=== PATIENT | female | born 1980 | race Caucasian/White ===

== ENCOUNTER 2020-02-04 18:02 | Emergency (ER) | payer MEDICAID, SELFPAY ==
[2020-02-04] VITALS (7 sets, daily range): BP systolic 133–198; BP diastolic 87–140; PULSE 86–103; RESP 12–18; TEMP 38.1; O2SAT 96–100
--- NOTE | ~2020-02-04 | XR_ITS ---
EXAMINATION: XR chest 1V portable INDICATION: Fever and chills, shortness of breath TECHNIQUE: Portable AP chest at 1833 hours COMPARISON: 01/14/2009 FINDINGS: There are minimal airspace opacities in the mid and lower lung zones. No pleural effusion o r pneumothorax is identified. The cardiomediastinal silhouette is normal. IMPRESSION: 1. Airspace opacities of the mid and lower lung zones, consistent with atelectasis versus pneumonia. Reviewed, dictated and finalized at location A. IMPRESSION: 1. Airspace opacities of the mid and lower lung zones, consistent with atelecta sis versus pneumonia.
[2020-02-04 18:32] LABS: Basophils Percent Auto 0.3 % (0.2-1.2); Hematocrit 43.6 % (37.0-47.0); Hemoglobin 14.4 g/dL (12.0-15.0); Immature Granulocyte Absolute 0.01 K/mm3 (0.00-0.031); Immature Granulocyte Percent A 0.3 % (0-0.5); Lymphocytes Absolute Auto 1.01 K/mm3 (0.9-3.2); Lymphocytes Percent Auto 33.3 % (18.3-44.2); Mean Corpuscular Hemoglobin 26.9 pg (26-34); Mean Corpuscular Volume 81.3 fl (80-100); Mean Platelet Volume 10.5 fl (7.4-10.4); Monocytes Absolute Auto 0.2 K/mm3 (0.1-0.6); Monocytes Percent Auto 6.3 % (2.6-8.5); Neutrophils Absolute Auto 1.8 K/mm3 (1.3-6.7); Neutrophils Percent Auto 59.8 % (45.5-73.1); Platelet Count Result 164 k/mm3 (150-375); Red Blood Count 5.36 M/mm3 (4.2-5.4); Red Cell Distribution Width 13.6 % (11.5-14.5)
[2020-02-04] MEDS: ONDANSETRON INJ 4 MG/2 ML VIAL IV PUSH (18:37)
[2020-02-04] MEDS: FAMOTIDINE 20 MG/2 ML VIAL IV PUSH (18:37)
[2020-02-04] MEDS: LACTATED RINGERS 1,000 ML 999 ML IV CONT (18:38)
--- NOTE | 2020-02-04 18:41 | ED.GENADULT ---
HPI - General Adult General Chief complaint: Unspecified <TAMMY Olivo Last Filed: 02/04/20 20:32> Stated complaint: everything is wrong <TAMMY Olivo Last Filed: 02/04/20 20:32> Time Seen by Provider: 02/04/20 18:05 <TAMMY Olivo Last Filed: 02/04/20 20:32> Source: patient <TAMMY Olivo Last Filed: 02/04/20 20:32> Mode of arrival: ambulatory <TAMMY Olivo Last Filed: 02/04/20 20:32> Limitations: no limitations <TAMMY Olivo Last Filed: 02/04/20 20:32> History of Present Illness HPI narrative: Patient is a 39-year-old female who presents to emergency department for evaluation of fever chills body aches vomiting diarrhea URI symptoms for the last 7 days patient had a family member that was ill however has been better since his evaluation is unsure as to the etiology of his symptoms was tested for COVID but does not know the results. Patient herself has not been tested for COVID presents noting that today she was having emesis has had some loose stools over the course of the illness and also notes cough and congestion fever chills and body aches. Patient has been taking [id number] medications with minimal improvement. Patient on arrival is ill-appearing. <TAMMY Olivo Last Filed: 02/04/20 20:32> Related Data Allergies/adverse reactions: Allergies Allergy/AdvReac Type Severity Reaction Status Date / Time ibuprofen Allergy Mild 600 MG Verified 02/23/19 17:50 GIVES RASH ketorolac Allergy Mild RASH Verified 02/23/19 17:50 propoxyphene Allergy Mild RASH Verified 02/23/19 17:50 codeine Allergy Swelling Verified 02/04/20 18:17 of Lip/Tongue/Throat diphenhydramine Allergy Swelling Verified 02/04/20 18:17 [From Benadryl] of Lip/Tongue/Throat morphine Allergy Difficulty Verified 02/04/20 18:17 Breathing Contrast Media Allergy Mild Unknown Uncoded 02/04/20 18:17 <TAMMY Olivo Last Filed: 02/04/20 20:32> Review of Systems Review of Systems: All systems reviewed & are unremarkable except as noted in HPI and below <Freedom Salgado PA-C - Last Filed: 02/04/20 20:32> [facility] Past Medical History Medical History: Medical History (Updated 02/05/20 @ 00:00 by Jean Paul Burciaga) Morbid obesity <Freedom Salgado PA-C - Last Filed: 02/04/20 20:32> Surgical History Surgical History: Surgical History H/O bariatric surgery <Freedom Salgado PA-C - Last Filed: 02/04/20 20:32> Social History Social History: Social History Smoking status: Never smoker <Freedom Salgado PA-C - Last Filed: 02/04/20 20:32> Exam Narrative: Exam Narrative: GENERAL: Ill-appearing, obese, and in no acute distress. HEAD: Normocephalic, atraumatic. EYES: PERRLA and EOMI. ENT: Nares clear, no rhinorrhea or epistaxis. Mucous membranes moist. Oropharynx without tonsillar hypertrophy exudate or other lesions. NECK: Supple. No adenopathy or masses. CHEST: Clear to auscultation. No respiratory distress. No wheezes rales or rhonchi HEART: Regular rate and rhythm. No murmur heard. Normal peripheral pulses. ABDOMEN: Soft, generalized tenderness, distended EXTREMITIES: Normal range of motion. No edema. SKIN: Warm, dry, no rash. NEURO: No focal deficits. Alert and oriented x3. Cranial nerves II through XII grossly intact PSYCH: Normal mood and affect. <Freedom Salgado PA-C - Last Filed: 02/04/20 20:32> Course Course Emergency Course: Patient in the room at this time aware of case findings treatment plan and diagnosis patient will be treated for COVID given her symptoms and findings patient provided with reasons to return patient hemodynamically stable no hypoxemia patient advised strictly for reasons to return patient agrees to do so symp
[2020-02-04 18:45] LABS: Prothrombin Time 12.6 Seconds (11.1-14.7)
[2020-02-04 18:46] LABS: Partial Thromboplastin Time 30.3 SECONDS (22.3-36.8)
[2020-02-04 18:47] LABS: Alanine Aminotransferase 30 U/L (4-35); Albumin Level 4.3 g/dL (3.5-5.1); Alkaline Phosphatase 98 U/L (38-126); Anion Gap 13.6 mmol/L (7-16); Aspartate Amino Transferase 38 U/L (14-36); Bilirubin,Total 0.9 mg/dL (0.2-1.3); Blood Urea Nitrogen 9 mg/dL (7-17); CRP 4.8 mg/dL (<1.0); Calcium 8.5 mg/dL (8.4-10.2); Carbon Dioxide 24 mmol/L (22-30); Chloride 103 mmol/L (98-107); Estimated CRCL calculation 184 ml/min; Estimated Glomerular Filt Rate > 60; Glucose 142 mg/dL (65-105); Lipase 82 U/L (23-300); Potassium 3.6 mmol/L (3.4-5.0); Sodium 137 mmol/L (137-145)
[2020-02-04] MEDS: METOPROLOL TARTRATE INJ 5 MG/5 ML VIAL IV PUSH (19:30)
[2020-02-04] MEDS: SODIUM CHLORIDE 0.9% IV 1,000 ML 999 ML IV CONT (19:33)
[2020-02-04 20:06] LABS: Add Urine Microscopic? YES; Appearance Urine Cloudy (Clear); Bilirubin Urine Negative (Negative); Blood Urine 3+ (Negative); Color Urine Yellow (Yellow); Glucose Urine UA 1+ mg/dL (Negative); Ketones Urine Negative (Negative); Leukocyte Esterase Ur Negative LEU/UL (Negative); Mucus Urine Few /lpf; Nitrate Urine Negative (Negative); Protein Urine 3+ mg/dL (Negative); RBC Urine >75 /hpf (0-2); Specific Grav Ur 1.024 (1.001-1.035); Urobilinogen Urine Negative mg/dL (<2.0)
--- NOTE | 2020-02-04 20:19 | PC.NURSE ---
Per EDP, conduct a road text on patient in room while monitoring 02. Pt stood up in room, but felt weak in her legs after 1 step and sat back down. Pt encouraged to try again. Pt stood up again and then sat back down. Pt then scooted down on bed. Pt 02 ranged from 96-99% during this time. EDP updated.
--- NOTE | 2020-02-04 20:23 | PC.NURSE ---
RT called to come see patient.
--- NOTE | 2020-02-04 20:43 | PC.NURSE ---
Pt dischargedd before receiving all of her fluids. A second line was started earlier to help her get fluids quicked. Pt educated on keeping her arm straight several times, but did not do so. Upon d/c I offered to let her stay until her fluids were all in and she said no I want to leave right now! Pt was also upset that we were not sending her home with the medications that the doctor prescribed. I explained to her this is not a practice we can do. She was concerned about affording the medications. I got her a prescription coupon. I educated her on the importance of taking her BP medications and getting them filled.
[2020-02-05 05:53] LABS: SARS-CoV-2 RNA PCR Positive
== END 2020-02-04 20:46 | disposition home or self-care (01) ==
PROVIDERS: Emergency Medicine Emergency Medical Services; Emergency Provider Emergency Medicine
DX: U07.1 COVID-19 (principal); J12.89 Other viral pneumonia
CPT/HCPCS: 36415; 71045; 80053; 81001; 83605; 83690; 85025; 85610; 85730; 86140; 87040; 87635; 96361; 96365; 96375; 99284; C9803; J0131; J1100; J2405; J7030; J7120; U0003

== ENCOUNTER 2020-03-29 18:08 | Emergency (ER) | payer MEDICAID, SELFPAY ==
--- NOTE | 2020-03-29 18:14 | ED.GENADULT ---
HPI - General Adult General Chief complaint: Skin/Abscess/Foreign Body Stated complaint: Rash Time Seen by Provider: 03/29/20 18:36 Source: patient Mode of arrival: ambulatory Limitations: no limitations History of Present Illness HPI narrative: 39-year-old female patient presents to the [facility] with complaints of a rash that she noticed last night. Patient states that the rash is gotten increasingly worse today and complains of itchiness. Patient states she did spend the night in a hotel room on Sunday night. Patient states the rash is mostly on her buttocks, going down the posterior legs, and bilateral upper arms. Patient denies doing anything for the rash so far. Denies any fevers, body aches or chills. Related Data Allergies Allergy/AdvReac Type Severity Reaction Status Date / Time ibuprofen Allergy Mild 600 MG Verified 03/29/20 18:38 GIVES RASH ketorolac Allergy Mild RASH Verified 03/29/20 18:38 propoxyphene Allergy Mild RASH Verified 03/29/20 18:38 codeine Allergy Swelling Verified 03/29/20 18:38 of Lip/Tongue/Throat diphenhydramine Allergy Swelling Verified 03/29/20 18:38 [From Benadryl] of Lip/Tongue/Throat morphine Allergy Difficulty Verified 03/29/20 18:38 Breathing Contrast Media Allergy Mild Unknown Uncoded 03/29/20 18:38 Review of Systems Review of Systems: Narrative: CONSTITUTIONAL: Denies fever, chills, or sweats. EYES: Denies visual changes, redness, or discharge. ENT: Denies rhinorrhea, congestion, sore throat, or otalgia. CARDIOVASCULAR: Denies chest pain, palpitations, or edema. RESPIRATORY: Denies cough or dyspnea. GASTROINTESTINAL: Denies abdominal pain, nausea, vomiting, or diarrhea. GENITOURINARY: Denies dysuria or hematuria. SKIN: Positive rash with itching to buttocks, bilateral lower extremities and bilateral upper extremities since last night. MUSCULOSKELETAL: Denies back pain, joint pain, or myalgia. NEUROLOGIC: Denies headache, numbness, or weakness. PSYCHIATRIC: Denies anxiety or depression. [facility] Past Medical History Medical History (Updated 03/29/20 @ 18:44 by SANFORD Aragon) Anxiety Asthma Depression Diabetes Hypertension Migraines Morbid obesity Surgical History Surgical History (Updated 09/14/20 @ 18:16 by SANFORD Aragon) H/O bariatric surgery History of appendectomy Social History Social History Smoking status: Never smoker Gender identity (if verbalized by the patient): Female Comments At the time of my signature I agree with nursing past medical history, surgical, social, and family history. There is no relevant family history pertinent to the presenting complaint. Exam Narrative: Exam Narrative: GENERAL: Well-appearing, well-nourished, and in no acute distress. HEAD: Normocephalic, atraumatic. EYES: PERRLA and EOMI. ENT: Nares clear, no rhinorrhea or epistaxis. Mucous membranes moist. NECK: Supple. No lymphadenopathy CHEST: Clear to auscultation. No respiratory distress. HEART: Regular rate and rhythm. No murmur heard. Normal peripheral pulses. ABDOMEN: Soft, nontender, nondistended, normal active bowel sounds. EXTREMITIES: Normal range of motion. No edema. SKIN: Warm, dry, patient has small macular rash noted to the buttocks that appears to be small red dots all over the buttocks and and going into the posterior legs and to the upper buttocks and low back area. There is no open wounds or discharge noted to any other areas. There is a similar rash noted to the posterior upper extremities around the shoulders. NEURO: No focal deficits. Alert and oriented x3. Course Vital Signs Vital signs: Vital Signs Temperature 36.8 C 03/29/20 18:23 Pulse Rate 93 03/29/20 18:23 Respiratory Rate 16 03/29/20 18:23 Blood Pressure 168/120 H 03/29/20 18:23 Pulse Oximetry 98 03/29/20 18:23 Temperature 36.8 C 03/29/20 18:23 Pulse Rate 93 03/29/20 1
[2020-03-29 18:23] VITALS: BP 168/120; PULSE 93; RESP 16; TEMP 36.8; O2SAT 98
== END 2020-03-29 18:47 | disposition home or self-care (01) ==
PROVIDERS: Emergency Provider Nurse Practitioner Family
DX: R21 Rash and other nonspecific skin eruption (principal); S30.860A Insect bite (nonvenomous) of lower back and pelvis, initial encounter; S40.862A Insect bite (nonvenomous) of left upper arm, initial encounter; S40.861A Insect bite (nonvenomous) of right upper arm, initial encounter; W57.XXXA Bitten or stung by nonvenomous insect and other nonvenomous arthropods, initial encounter; J45.909 Unspecified asthma, uncomplicated; E11.9 Type 2 diabetes mellitus without complications; I10 Essential (primary) hypertension; E66.01 Morbid (severe) obesity due to excess calories; Z68.44 Body mass index [BMI] 60.0-69.9, adult
CPT/HCPCS: 99213; G0463

== ENCOUNTER 2021-01-20 16:07 | Emergency (ER) | payer OTHER, SELFPAY ==
--- NOTE | ~2021-01-20 | XR_ITS ---
EXAMINATION: XR foot LT min 3V DATE: 01/20/2021 16:33 INDICATION: Left foot pain. TECHNIQUE: 3 views of left foot were obtained. COMPARISON: Left ankle radiographs 09/05/2008 FINDINGS: Bone alignment is normal. No fracture. There is mild midfoot osteoarthritis. There is an en thesophyte at posterior aspect of calcaneal tuberosity. Calcifications overlie the lower leg soft tis sues. IMPRESSION: 1. Mild midfoot osteoarthritis. Reviewed, dictated and finalized at location A.
[2021-01-20 16:18] VITALS: PULSE 87; RESP 20; TEMP 36.4; O2SAT 96
--- NOTE | 2021-01-20 16:28 | ED.GENADULT ---
HPI - General Adult General Chief complaint: Extremity Injury, Lower Stated complaint: painful left foot Time Seen by Provider: 01/20/21 16:28 Source: patient and RN notes reviewed Mode of arrival: ambulatory Limitations: no limitations History of Present Illness HPI narrative: 40-year-old female presents with a wound to the left foot with erythema, tenderness, and drainage for 1 week. ?Monica reports stepping on glass approximately 1 week ago, awakened this morning approximately 03:00AM in extreme pain to LT foot, took a pair of tweezers to foot due to feeling a piece of glass, now has increased pain and redness. ?No streaking. ?Denies fever or chills. ?Tetanus not up-to-date, will update today. ?Denies nausea, vomiting, and abdominal pain. ? Tolerating po intake well. ?LMP 3 weeks. ?Remains active. ?The patient reports she was diagnosed with COVID-19 in September 2019. ?The patient reports she is not waiting for the results of a COVID-19 lab test. ?The patient reports she does not have weakness or fatigue. ?The patient reports she does not have a new or worsening cough or shortness of breath. ?Denies chest pain. ?The patient reports she does not have any rhinorrhea, congestion, sore throat, loss of taste or smell, and diarrhea. ?Denies recent traveling. ?Denies concerns for COVID-19 or exposures. ?At this time, the patient is not suspected of having COVID-19. Some parts of this dictation were generated by voice recognition software and may contain typographical and/or grammatical inaccuracies. Related Data Home Medications Medication Instructions Recorded Confirmed lisinopril-hydrochlorothiazide 1 tablet PO DAILY 01/20/21 01/20/21 metoprolol succinate 1 mg PO DAILY 01/20/21 01/20/21 Allergies Allergy/AdvReac Type Severity Reaction Status Date / Time ibuprofen Allergy Mild 600 MG Verified 01/20/21 16:27 GIVES RASH ketorolac Allergy Mild RASH Verified 01/20/21 16:27 propoxyphene Allergy Mild RASH Verified 01/20/21 16:27 codeine Allergy Swelling Verified 01/20/21 16:27 of Lip/Tongue/Throat diphenhydramine Allergy Swelling Verified 01/20/21 16:27 [From Benadryl] of Lip/Tongue/Throat morphine Allergy Difficulty Verified 01/20/21 16:27 Breathing Contrast Media Allergy Mild Unknown Uncoded 01/20/21 16:27 Review of Systems Review of Systems: Narrative: CONSTITUTIONAL: Denies fever, chills, sweats. EYES: Denies visual changes, redness, discharge. ENT: Denies rhinorrhea, congestion, sore throat, otalgia. CARDIOVASCULAR: Denies chest pain, palpitations, edema. RESPIRATORY: Denies dyspnea, wheezing, cough. GASTROINTESTINAL: Denies abdominal pain, nausea, vomiting, diarrhea. SKIN: Complains of wound to left foot with erythema, tenderness, and drainage. MUSCULOSKELETAL: Denies acute back pain, joint pain, or myalgia. NEUROLOGIC: Denies numbness or focal weakness. PSYCHIATRIC: Denies anxiety or depression. All other systems reviewed are negative, except as documented in HPI and below. ON LICENSE OF [facility] Past Medical History Medical History Anxiety Asthma Depression Diabetes Hypertension Migraines Morbid obesity Surgical History Surgical History H/O bariatric surgery History of appendectomy Family History Family History (Updated 01/27/21 @ 18:56 by SANFORD Calhoun) Other Unknown family medical history Social History Social History (Updated 01/20/21 @ 19:16 by SANFORD Calhoun) Smoking status: Former smoker Tobacco type: cigarettes Second hand tobacco smoke exposure: Yes (spouse) Smoking end date: 07/21/02 Alcohol intake: never Substance use: never Living arrangements: with family Occupation/Education: unemployed Gender identity (if verbalized by the patient): Female Sexual Orientation (if Verbalized by the Patient): Straight or Heterosexual Comm
[2021-01-20] MEDS: TETANUS,DIPHTHERIA,AC PERTUSSIS ADULT (0.5 ML) BOOSTRIX IM (16:48)
[2021-01-20 16:55] VITALS: BP 150/90
--- NOTE | 2021-01-20 16:56 | PC.NURSE ---
Pt reports she has not taken her HTN medications today
== END 2021-01-20 17:08 | disposition home or self-care (01) ==
PROVIDERS: Emergency Provider Nurse Practitioner Family; PCP Physician Assistant
DX: L03.116 Cellulitis of left lower limb (principal); S91.332A Puncture wound without foreign body, left foot, initial encounter; W25.XXXA Contact with sharp glass, initial encounter; Y99.8 Other external cause status; Z23 Encounter for immunization; J45.909 Unspecified asthma, uncomplicated; E11.9 Type 2 diabetes mellitus without complications; E66.01 Morbid (severe) obesity due to excess calories; Z68.43 Body mass index [BMI] 50.0-59.9, adult; Z87.891 Personal history of nicotine dependence
CPT/HCPCS: 73630; 87070; 87147; 87186; 87205; 90471; 90715; 99213; G0463

== ENCOUNTER 2021-04-01 13:49 | Emergency (ER) | payer OTHER, SELFPAY ==
[2021-04-01] VITALS (9 sets, daily range): BP systolic 163–222; BP diastolic 84–152; PULSE 77–89; RESP 20–24; TEMP 35.9; O2SAT 95–98
--- NOTE | ~2021-04-01 | XR_ITS ---
EXAMINATION: XR chest 2V DATE: 04/01/2021 16:32 INDICATION: Lightheadedness, headache TECHNIQUE: AP and lateral views of the chest are obtained. COMPARISON: 02/04/2020 FINDINGS: The lungs are free of acute opacities. There is no pleural effusion or pneumothorax. The ca rdiomediastinal silhouette is normal. There is mild thoracic spondylosis. IMPRESSION: 1. No acute cardiopulmonary abnormality. Reviewed, dictated and finalized at location A.
--- NOTE | ~2021-04-01 | CT_ITS ---
EXAMINATION: CT brain wo con INDICATION: Headache COMPARISON: None TECHNIQUE: Standard unenhanced head CT. The dose-length product (DLP) was 681.00 mGy-cm. The mA was a djusted according to patient size. Iterative reconstruction technique was employed. FINDINGS: There is no intracranial hemorrhage, acute infarction, or abnormal mass lesion. The ventric les are normal. There is no abnormal mass effect or midline shift. The gaspar-white matter differentiat ion is normal. The basal cisterns are patent. The orbits are normal. The paranasal sinuses, mastoids and calvarium are normal. IMPRESSION: 1. No acute intracranial abnormality. Reviewed, dictated and finalized at location A.
--- NOTE | 2021-04-01 15:46 | ECG_ITS ---
Measurements Intervals [place] Rate: 81 P: 50 WV: 166 QRS: 13 QRSD: 118 T: 91 QT: 396 QTc: 461 Interpretive Statements SINUS RHYTHM INTRAVENTRICULAR CONDUCTION DELAY CONSIDER INFERIOR INFARCT, AGE INDETERMINATE BORDERLINE ST-T WAVE ABNORMALITY- ANTEROLAT/HIGH LAT LEADS BASELINE WANDER- I, II, AVR, AVL, AVF, V1 ABNORMAL ECG Electronically Signed On 04-02-2021 6:02:38 CDT by Shaka Rush D.O.
--- NOTE | 2021-04-01 15:57 | ED.HA ---
HPI - Headache General Chief Complaint: Headache Stated Complaint: MIGRAINE Time Seen by Provider: 04/01/21 15:46 Source: patient Mode of arrival: ambulatory Limitations: no limitations History of Present Illness HPI Narrative: This is a 40 year old female that presents to the ER for migraine headache since yesterday. Reports a pounding headache. Associated with photophobia, nausea and vomiting, and blurry vision. Does report history of migraines. She took her prescribed medication for migraine with little relief. Blood pressure noted to be elevated in the ED. Reports she did take her Metoprolol this morning. She has not taken her Lisinopril/HCTZ or Amlodipine yet. She fever, stiff neck, numbness or weakness. Related Data Home Medications Medication Instructions Recorded Confirmed lisinopril-hydrochlorothiazide 1 tablet PO DAILY 01/20/21 01/20/21 metoprolol succinate 50 mg PO DAILY 01/20/21 01/20/21 amlodipine 10 mg PO DAILY 04/01/21 Allergies Allergy/AdvReac Type Severity Reaction Status Date / Time ibuprofen Allergy Mild 600 MG Verified 04/01/21 15:46 GIVES RASH ketorolac Allergy Mild RASH Verified 04/01/21 15:46 propoxyphene Allergy Mild RASH Verified 04/01/21 15:46 codeine Allergy Swelling Verified 04/01/21 15:46 of Lip/Tongue/Throat diphenhydramine Allergy Swelling Verified 04/01/21 15:46 [From Benadryl] of Lip/Tongue/Throat morphine Allergy Difficulty Verified 04/01/21 15:46 Breathing Contrast Media Allergy Mild Unknown Uncoded 01/20/21 16:27 Review of Systems Review of Systems: CONSTITUTIONAL: Denies fever EYES: Reports visual changes GASTROINTESTINAL: Reports nausea, vomiting NEUROLOGIC: Reports headache. Denies numbness, or weakness. All systems reviewed & are unremarkable except as noted in HPI and below PMFSH Past Medical History Medical History Anxiety Asthma Depression Diabetes Hypertension Migraines Morbid obesity Surgical History Surgical History H/O bariatric surgery History of appendectomy Family History Family History (Updated 01/27/21 @ 18:56 by SANFORD Calhoun) Other Unknown family medical history Social History Social History (Updated 01/20/21 @ 19:16 by SANFORD Calhoun) Smoking status: Former smoker Tobacco type: cigarettes Second hand tobacco smoke exposure: Yes (spouse) Smoking end date: 07/21/02 Alcohol intake: never Substance use: never Gender identity (if verbalized by the patient): Female Sexual Orientation (if Verbalized by the Patient): Straight or Heterosexual Exam Narrative: GENERAL: Well-appearing, obese, and in no acute distress. HEAD: Normocephalic, atraumatic. EYES: PERRLA and EOMI. ENT: Nares clear, no rhinorrhea or epistaxis. Mucous membranes moist. Oropharynx without tonsillar hypertrophy exudate or other lesions. Bilateral TMs pearly gaspar non-bulging NECK: Supple. No adenopathy or masses. CHEST: Clear to auscultation. No respiratory distress. No wheezes rales or rhonchi HEART: Regular rate and rhythm. No murmur heard. Normal peripheral pulses. EXTREMITIES: Normal range of motion. No edema. Strength equal in bilateral upper and lower extremities SKIN: Warm, dry, no rash. NEURO: No focal deficits. Alert and oriented x3. Cranial nerves II through XII grossly intact PSYCH: Normal mood and affect Course Vital Signs Vital signs: Vital Signs Temperature 96.6 F L 04/01/21 14:02 Pulse Rate 86 04/01/21 14:02 Respiratory Rate 04/01/21 14:02 Blood Pressure 222/137 H 04/01/21 14:02 Pulse Oximetry 95 04/01/21 14:02 Temperature 96.6 F L 04/01/21 14:02 Pulse Rate 89 04/01/21 20:34 Respiratory Rate 20 04/01/21 20:34 Blood Pressure 185/101 H 04/01/21 20:34 Pulse Oximetry 98 04/01/21 20:34 MDM - Headache MDM Narrative Medical decision priscila
[2021-04-01] MEDS: SODIUM CHLORIDE 0.9% IV 1,000 ML 999 ML IV CONT (16:04)
[2021-04-01] MEDS: METOCLOPRAMIDE HCL INJ 10 MG/2 ML VIAL IV PUSH (16:08)
[2021-04-01] MEDS: METOPROLOL TARTRATE INJ 5 MG/5 ML VIAL IV PUSH (16:11)
[2021-04-01 16:36] LABS: Basophils Percent Auto 0.5 % (0.2-1.2); Eosinophils Absolute Auto 0.2 K/mm3 (0-0.3); Eosinophils Percent Auto 3.3 % (0-4.4); Hematocrit 39.6 % (37.0-47.0); Immature Granulocyte Absolute 0.02 K/mm3 (0.00-0.031); Immature Granulocyte Percent A 0.3 % (0-0.5); Lymphocytes Absolute Auto 2.14 K/mm3 (0.9-3.2); Lymphocytes Percent Auto 29.1 % (18.3-44.2); Mean Corpuscular HGB Conc 32.8 g/dl (32-36); Mean Corpuscular Hemoglobin 26.8 pg (26-34); Mean Corpuscular Volume 81.6 fl (80-100); Mean Platelet Volume 9.5 fl (7.4-10.4); Monocytes Absolute Auto 0.5 K/mm3 (0.1-0.6); Monocytes Percent Auto 6.8 % (2.6-8.5); Neutrophils Absolute Auto 4.4 K/mm3 (1.3-6.7); Platelet Count Result 296 k/mm3 (150-375); Red Blood Count 4.85 M/mm3 (4.2-5.4); Red Cell Distribution Width 13.7 % (11.5-14.5); White Blood Count 7.4 K/mm3 (4.5-10.0)
[2021-04-01 16:52] LABS: Anion Gap 11 mmol/L (8-16); Blood Urea Nitrogen 13 mg/dL (7-17); Calcium 8.6 mg/dL (8.4-10.2); Carbon Dioxide 25 mmol/L (22-30); Chloride 102 mmol/L (98-107); Estimated CRCL calculation 184 ml/min; Estimated Glomerular Filt Rate > 60; Glucose 208 mg/dL (65-110); Potassium 3.4 mmol/L (3.4-5.0); Sodium 138 mmol/L (137-145)
[2021-04-01] MEDS: amLODIPine BESYLATE 5 MG TABLET 10 MG PO (17:19)
[2021-04-01] MEDS: lisinopriL 20 MG TABLET PO (17:19)
[2021-04-01] MEDS: hydroCHLOROthiazide 12.5 MG CAPSULE PO (17:19)
[2021-04-01] MEDS: hydrALAZINE HCL 20 MG/ML VIAL IV PUSH (17:47)
[2021-04-01 19:23] LABS: Hemoglobin A1C 7.7 % (<5.7)
[2021-04-01] MEDS: PROCHLORPERAZINE EDISYLATE 10 MG/2 ML VIAL IV PUSH (20:32)
[2021-04-01] MEDS: HYDROmorphone HCL INJ (*CRX) 1 MG/ML SYR 0.5 MG IV PUSH (20:32)
--- NOTE | 2021-04-01 23:14 | PM.EVENT ---
Event Note Event Note Event Note: Called to admit patient for headache and elevated blood pressure. When I came to see the patient in the ED, she expressed to me that she did not want to be admitted. She admits non-compliance with her blood pressure medications and they have improved quite a bit when she was given her prescribed medication. Her headache is not much better despite improvement in her pressures, and she is requesting compazine and dilaudid. I relayed this information to the ED provider and she was ultimately discharged from the ED.
== END 2021-04-01 22:14 | disposition home or self-care (01) ==
LOC: ANHED 19:03 → ANH2MED 20:08 → ANHED 21:45
PROVIDERS: Physician Assistant; Emergency Provider Emergency Medicine; PCP Physician Assistant
DX: I16.0 Hypertensive urgency (principal); G43.909 Migraine, unspecified, not intractable, without status migrainosus; E11.9 Type 2 diabetes mellitus without complications; F41.9 Anxiety disorder, unspecified; F32.9 Major depressive disorder, single episode, unspecified; E66.01 Morbid (severe) obesity due to excess calories; Z87.09 Personal history of other diseases of the respiratory system; Z86.69 Personal history of other diseases of the nervous system and sense organs; Z87.891 Personal history of nicotine dependence
CPT/HCPCS: 36415; 70450; 71046; 80048; 83036; 85025; 93005; 96361; 96365; 96375; 99284; A9270; J0131; J0360; J0780; J1100; J1170; J2765; J7030

== ENCOUNTER 2021-10-28 16:08 | Emergency (ER) | payer OTHER, SELFPAY ==
[2021-10-28 16:20] VITALS: BP 170/86; PULSE 77; RESP 24; TEMP 36.2; O2SAT 98
--- NOTE | 2021-10-28 16:51 | ED.URI ---
HPI - URI/Sore Throat General Chief Complaint: Upper Respiratory Infection Stated Complaint: back pain /cough Time Seen by Provider: 10/28/21 16:51 Source: patient, family, RN notes reviewed and old records reviewed Mode of arrival: ambulatory Limitations: no limitations History of Present Illness HPI Narrative: 40-year-old female presents to the [facility] with complaints of feeling feverish, sore throat, chest wall pain only with coughing, nonproductive cough for 2 days. No treatment prior to arrival. Related Data Home Medications Medication Instructions Recorded Confirmed metoprolol succinate 50 mg PO DAILY 01/20/21 10/28/21 amlodipine 10 mg PO DAILY 04/01/21 10/28/21 Allergies Allergy/AdvReac Type Severity Reaction Status Date / Time ibuprofen Allergy Mild 600 MG Verified 10/28/21 16:33 GIVES RASH ketorolac Allergy Mild RASH Verified 10/28/21 16:33 propoxyphene Allergy Mild RASH Verified 10/28/21 16:33 codeine Allergy Swelling Verified 10/28/21 16:33 of Lip/Tongue/Throat diphenhydramine Allergy Swelling Verified 10/28/21 16:33 [From Benadryl] of Lip/Tongue/Throat morphine Allergy Difficulty Verified 10/28/21 16:33 Breathing Contrast Media Allergy Mild Unknown Uncoded 01/20/21 16:27 Review of Systems Review of Systems: All systems reviewed & are unremarkable except as noted in HPI and below Constitutional: Constitutional: Reports as per HPI, Denies chills, Reports fatigue, Reports fever(s) and Denies headache(s) Eyes: Eyes: Reports no additional eye complaints ENT: Reports as per HPI, Denies vertigo, Denies dizziness, Denies headache(s), Denies nasal congestion and Denies sore throat Cardiovascular: Cardiovascular: Reports no additional cardiovascular complaints, Denies chest pain, Denies syncope, Denies rapid heart rate and Denies dyspnea Respiratory: Respiratory: Reports as per HPI, Reports cough, Denies dyspnea and Denies wheezing Gastrointestinal: Gastrointestinal: Reports no additional gastrointestinal complaints, Denies abdominal pain, Denies diarrhea, Denies nausea and Denies vomiting Musculoskeletal: Musculoskeletal: Reports no additional musculoskeletal complaints and Denies numbness Integumentary/Breasts: Skin/Breast: Reports system reviewed and no additional complaints, except as docu Neurologic: Reports system reviewed and no additional complaints, except as documented, Reports as per HPI, Denies vertigo, Denies dizziness, Denies syncope, Reports headache(s), Denies focal weakness and Denies numbness Psychiatric: Psychiatric: Reports no additional psychiatric complaints Allergic/Immunologic: Allergic/Immunologic: Reports no additional allergic/immunologic complaints PMFSH Past Medical History Medical History Anxiety Asthma Depression Diabetes Hypertension Migraines Morbid obesity Surgical History Surgical History H/O bariatric surgery History of appendectomy Family History Family History Other Unknown family medical history Social History Social History Smoking status: Former smoker Tobacco type: cigarettes Second hand tobacco smoke exposure: Yes (spouse) Smoking end date: 07/21/02 Alcohol intake: never Substance use: never Gender identity (if verbalized by the patient): Female Sexual Orientation (if Verbalized by the Patient): Straight or Heterosexual Comments At the time of my signature, I reviewed and agree with the nursing past medical, surgical, social, and family history. There is no relevant family history pertinent to the patient complaint. Exam Const: General: cooperative, no acute distress, well developed, alert and ill appearing acutely (Mild) Nutritional Appearance: well nourished and obese morbidly
== END 2021-10-28 17:05 | disposition home or self-care (01) ==
PROVIDERS: Emergency Provider Nurse Practitioner; PCP Physician Assistant
DX: J40 Bronchitis, not specified as acute or chronic (principal); Z87.891 Personal history of nicotine dependence; J45.909 Unspecified asthma, uncomplicated; E11.9 Type 2 diabetes mellitus without complications; I10 Essential (primary) hypertension; E66.01 Morbid (severe) obesity due to excess calories; Z68.44 Body mass index [BMI] 60.0-69.9, adult
CPT/HCPCS: 87804; 99213; G0463